=== PATIENT | male | born 1950 | race Caucasian/White ===

== ENCOUNTER 2017-07-15 16:23 | Emergency (ER) | payer OTHER ==
[~2017-07-15] VITALS: Ht 167.6 cm; Wt 74.8 kg
[2017-07-15 16:24] VITALS: BP_SYST 164
[2017-07-15] MEDS ORDERED: LIDOCAINE 1%, 20 ML MDV 20 ML ONE (16:43)
[2017-07-15] MEDS: LIDOCAINE 1% 10 MG/ML, 20 ML MDV INJ ONE (16:52)
[2017-07-15] MEDS: BACITRACIN 1 GM OINT TP ONE (16:53)
[2017-07-15 17:19] LABS: BASOPHILS % (AUTO) 0.4 % (0.0-2.0); EOSINOPHILS # (AUTO) 0.3 K/uL (0.0-0.4); EOSINOPHILS % (AUTO) 3.3 % (0.0-4.0); HEMATOCRIT 35.9 % (36-54); HEMOGLOBIN 11.6 g/dL (14.0-18.0); LYMPHOCYTES # (AUTO) 3.6 K/uL (1.0-5.5); LYMPHOCYTES % (AUTO) 43.1 % (20.5-51.5); MEAN CORPUSCULAR HEMOGLOBIN 30 pg (27-31); MEAN CORPUSCULAR HGB CONC 32 % (32-36); MEAN CORPUSCULAR VOLUME 92 fL (79.0-98.0); MONOCYTES # (AUTO) 0.7 K/uL (0.0-1.0); NEUTROPHILS # (AUTO) 3.7 K/uL (1.8-7.7); NEUTROPHILS % (AUTO) 44.2 % (40.0-70.0); PLATELET COUNT (AUTO) 293 K/uL (130-430); RED BLOOD CELL COUNT(AUTO) 3.92 MIL/uL (4.2-6.2); RED CELL DISTRIBUTION WIDTH 12.4 % (9.0-15.0); WHITE BLOOD COUNT (AUTO) 8.3 K/uL (4.8-10.8)
[2017-07-15 17:20] LABS: CALCIUM 9.1 mg/dL (8.4-11.0); CREATININE 1.18 mg/dL (0.55-1.30); POTASSIUM 4.4 mmol/L (3.5-5.1)
[2017-07-15 17:23] LABS: PROTHROMBIN TIME 10.9 SECS (9.5-12.5)
[2017-07-15 17:25] LABS: ALBUMIN 3.8 g/dL (3.4-4.8); TOTAL BILIRUBIN 0.6 mg/dL (0.0-1.0)
[2017-07-15 18:15] VITALS: BP_SYST 138
== END 2017-07-15 18:15 | disposition home or self-care (01) ==
LOC: SED 16:23
DX: L76.22 Postprocedural hemorrhage of skin and subcutaneous tissue following other procedure (principal); I48.91 Unspecified atrial fibrillation; E78.00 Pure hypercholesterolemia, unspecified; N40.0 Benign prostatic hyperplasia without lower urinary tract symptoms; Z90.89 Acquired absence of other organs
CPT/HCPCS: 36415; 80053; 85025; 85610; 85730; 99284; J2001

== ENCOUNTER → 2017-07-16 | Emergency (ER) | payer OTHER ==
--- NOTE | 2017-07-16 12:42 | NUR ---
Ambulatory to bed 1, nose clip bleeding controlled at this time. notified
== END | disposition home or self-care (01) ==
LOC: SED 12:39
DX: M96.831 Postprocedural hemorrhage of a musculoskeletal structure following other procedure (principal); I48.91 Unspecified atrial fibrillation; Z85.22 Personal history of malignant neoplasm of nasal cavities, middle ear, and accessory sinuses; E78.00 Pure hypercholesterolemia, unspecified; Y83.8 Other surgical procedures as the cause of abnormal reaction of the patient, or of later complication, without mention of misadventure at the time of the procedure
CPT/HCPCS: 99281

== ENCOUNTER 2023-01-01 20:50 | Inpatient (IN) | payer OTHER ==
[~2023-01-01] VITALS: Ht 167.6 cm; Wt 68.5 kg
[2023-01-01 20:50] VITALS: BP_SYST 154
[~2023-01-01 20:50] MED LIST: CARB1TAB10 PO; CARB1TAB33 PO; CLON0.5T4 PO; DILT120C89 PO; LIP10 PO; LOSA25TA3 PO; MELA10TA2 PO; NITR0.4T47 SL; RIVA20TA PO; ROPI0.5T4 PO; TAMS-11 PO; TIMO5DRO16 RIGHT EYE; VITA0.4T18 PO; VITD2000 PO
[2023-01-01 21:27] LABS: BASOPHILS % (AUTO) 0.4 % (0.0-2.0); EOSINOPHILS # (AUTO) 0.4 K/uL (0.0-0.4); EOSINOPHILS % (AUTO) 6.9 % (0.0-4.0); HEMATOCRIT 37.8 % (36-54); HEMOGLOBIN 12.6 g/dL (14.0-18.0); LYMPHOCYTES # (AUTO) 2.1 K/uL (1.0-5.5); LYMPHOCYTES % (AUTO) 34.3 % (20.5-51.5); MEAN CORPUSCULAR HEMOGLOBIN 31 pg (27-31); MEAN CORPUSCULAR HGB CONC 34 % (32-36); MEAN CORPUSCULAR VOLUME 92 fL (79.0-98.0); MONOCYTES # (AUTO) 0.6 K/uL (0.0-1.0); MONOCYTES % (AUTO) 9.7 % (1.7-9.3); NEUTROPHILS % (AUTO) 48.7 % (40.0-70.0); PLATELET COUNT (AUTO) 229 K/uL (130-430); RED BLOOD CELL COUNT(AUTO) 4.11 MIL/uL (4.2-6.2); RED CELL DISTRIBUTION WIDTH 13.2 % (9.0-15.0); WHITE BLOOD COUNT (AUTO) 6.1 K/uL (4.8-10.8)
[2023-01-01 21:51] LABS: ANION GAP 6 (5-15); CALCIUM 9.6 mg/dL (8.4-11.0); CHLORIDE 102 mmol/L (98-107); CREATININE 0.95 mg/dL (0.55-1.30); GLUCOSE 123 mg/dL (70-99); UREA NITROGEN, BLOOD 23 mg/dL (8-21)
[2023-01-01 21:59] LABS: ALANINE AMINOTRANSFERASE 14 U/L (12-78); ALBUMIN 4.1 g/dL (3.4-4.8); ASPARTATE AMINOTRANSFERASE 20 U/L (10-37); TOTAL BILIRUBIN 0.4 mg/dL (0.0-1.0)
[2023-01-01] MEDS ORDERED: TAMS0.4C96 PO (22:29)
[2023-01-01] MEDS ORDERED: ATOR20TA64 PO (22:29)
[2023-01-01] MEDS ORDERED: CARB-1 PO (22:29)
[2023-01-01] MEDS ORDERED: DILT120C95 PO (22:29)
[2023-01-01] MEDS ORDERED: TIMO5DRO15 RIGHT EYE (22:29)
[2023-01-01] MEDS ORDERED: DILT120C52 PO (22:29)
[2023-01-01] MEDS ORDERED: LOSA25TA18 PO (22:29)
[2023-01-01] MEDS ORDERED: DILT60CA PO (22:29)
[2023-01-01 22:32] LABS: INR 1.4 (0.80-1.20)
[2023-01-01 22:36] LABS: PROTHROMBIN TIME 14.1 SECS (9.5-12.5)
[2023-01-01 23:32] LABS: BILIRUBIN,URINE NEGATIVE (NEGATIVE); BLOOD, URINE NEGATIVE (NEGATIVE); CLARITY/URINE CLEAR (CLEAR); COLOR,URINE YELLOW (YELLOW); GLUCOSE,URINE NEGATIVE (NEGATIVE); KETONES,URINE TRACE (NEGATIVE); LEUKOCYTE ESTERASE ,URINE NEGATIVE (NEGATIVE); NITRITE, URINE NEGATIVE (NEGATIVE); PH,URINE 6.5 (5.0-8.0); PROTEIN URINE NEGATIVE (NEGATIVE)
[2023-01-02 00:26] LABS: PHOSPHORUS 3.7 mg/dL (2.7-4.5)
[2023-01-02] MEDS ORDERED: clonazePAM 0.5 MG TABLET PO ONE (02:15)
[2023-01-02] MEDS ORDERED: NITROGLYCERIN 0.4 MG TAB.SUBL SL PRN (07:30)
[2023-01-02] MEDS ORDERED: NON-FORMULARY MEDICATION (Carbidopa/Levodopa (Carbidopa-Levo 25-100 Mg Odt) 2 TAB) PO SCH (09:00)
[2023-01-02] MEDS: TAMSULOSIN HCL 0.4 MG CAP PO SCH (09:00)
[2023-01-02] MEDS: ATORVASTATIN 20 MG TABLET PO SCH (11:03)
[2023-01-02] MEDS: LOSARTAN POTASSIUM 25 MG TABLET PO SCH (11:03)
[2023-01-02] MEDS: RIVAROXABAN 10 MG TABLET PO SCH (11:05)
[2023-01-02] MEDS: DILTIAZEM HCL 120 MG CAP.SR.24H PO SCH (11:32)
[2023-01-02 15:24] VITALS: BP_SYST 118
[2023-01-02 15:44] VITALS: BP_SYST 115
[2023-01-02] MEDS: CARBIDOPA/LEVODOPA 25/100 MG TABLET PO SCH ×2 (17:25→21:05)
[2023-01-02 20:09] VITALS: BP_SYST 102
[2023-01-02] MEDS ORDERED: CARBIDOPA/LEVODOPA 25/100 MG TABLET PO SCH (21:00)
[2023-01-02] MEDS ORDERED: roPINIRole HCL 0.25 MG ( REQUIP )TABLET PO SCH (21:00)
[2023-01-02] MEDS ORDERED: clonazePAM 0.5 MG TABLET PO SCH (21:00)
[2023-01-02] MEDS ORDERED: NON-FORMULARY MEDICATION (Ropinirole Hcl 0.5 MG) PO SCH (21:00)
[2023-01-03] VITALS: BP_SYST 107
[2023-01-03 06:48] LABS: ANION GAP 9 (5-15); CALCIUM 9.3 mg/dL (8.4-11.0); CHLORIDE 101 mmol/L (98-107); CREATININE 0.86 mg/dL (0.55-1.30); GLUCOSE 91 mg/dL (70-99); UREA NITROGEN, BLOOD 21 mg/dL (8-21)
[2023-01-03 07:01] LABS: BASOPHILS % (AUTO) 0.5 % (0.0-2.0); EOSINOPHILS # (AUTO) 0.3 K/uL (0.0-0.4); EOSINOPHILS % (AUTO) 4.4 % (0.0-4.0); LYMPHOCYTES # (AUTO) 2.5 K/uL (1.0-5.5); LYMPHOCYTES % (AUTO) 35.6 % (20.5-51.5); MEAN CORPUSCULAR HEMOGLOBIN 31 pg (27-31); MEAN CORPUSCULAR HGB CONC 33 % (32-36); MEAN CORPUSCULAR VOLUME 93 fL (79.0-98.0); MONOCYTES # (AUTO) 0.7 K/uL (0.0-1.0); MONOCYTES % (AUTO) 9.4 % (1.7-9.3); NEUTROPHILS # (AUTO) 3.5 K/uL (1.8-7.7); NEUTROPHILS % (AUTO) 50.1 % (40.0-70.0); PLATELET COUNT (AUTO) 232 K/uL (130-430); RED BLOOD CELL COUNT(AUTO) 3.87 MIL/uL (4.2-6.2); RED CELL DISTRIBUTION WIDTH 13.3 % (9.0-15.0)
[2023-01-03 08:00] VITALS: BP_SYST 136
[2023-01-03] MEDS: TAMSULOSIN HCL 0.4 MG CAP PO SCH (08:36)
[2023-01-03] MEDS: DILTIAZEM HCL 120 MG CAP.SR.24H PO SCH (08:36)
[2023-01-03] MEDS: ATORVASTATIN 20 MG TABLET PO SCH (08:36)
[2023-01-03] MEDS: CARBIDOPA/LEVODOPA 25/100 MG TABLET PO SCH (08:37)
[2023-01-03] MEDS: LOSARTAN POTASSIUM 25 MG TABLET PO SCH (08:37)
[2023-01-03] MEDS: RIVAROXABAN 10 MG TABLET PO SCH (08:38)
[2023-01-03] MEDS ORDERED: TIMOLOL MALEATE 0.25% OPHTHALMIC DROPS 5 ML RIGHT EYE SCH (09:00)
[2023-01-03 11:52] VITALS: BP_SYST 129
[2023-01-03 12:52] VITALS: BP_SYST 129
== END 2023-01-03 20:44 | disposition home health service (06) | DRG 282 ==
LOC: SED 20:50 → STU 01-02 05:24
PROVIDERS: ADMIT Internal Medicine; ATTEND Internal Medicine
DX: R07.89 Other chest pain (principal); I21.A1 Myocardial infarction type 2; I10 Essential (primary) hypertension; I48.0 Paroxysmal atrial fibrillation; G20 Parkinson's disease; N40.0 Benign prostatic hyperplasia without lower urinary tract symptoms; Z20.822 Contact with and (suspected) exposure to COVID-19; E78.5 Hyperlipidemia, unspecified; C44.90 Unspecified malignant neoplasm of skin, unspecified; Z79.01 Long term (current) use of anticoagulants; Z85.46 Personal history of malignant neoplasm of prostate; Z79.899 Other long term (current) drug therapy
CPT/HCPCS: 36415; 71045; 80048; 80053; 81003; 83735; 83880; 84100; 84484; 85025; 85610-TC; 85730-TC; 93005; 99285; G0378